=== PATIENT | male | born 1960 | race Caucasian/White ===

== ENCOUNTER → 2019-09-27 16:44 | Outpatient (CLI) | payer OTHER, SELFPAY ==
[2019-09-27 17:04] LABS: Basophils # 0.1 K/mm3 (0-0.2); Basophils % 0.5 % (0.1-2.0); Eosinophils # 0.2 K/mm3 (0.0-0.4); Eosinophils % 1.5 % (0.1-12.0); Hematocrit 47.8 % (42.0-52.0); Hemoglobin 15.5 g/dL (14.1-18.0); Lymphocytes % 16.8 % (10-50); Mean Corpuscular HGB Conc 32.5 g/dL (31.8-35.4); Mean Corpuscular Hemoglobin 30.2 pg (27.0-31.2); Mean Corpuscular Volume 92.9 fl (80-94); Mean Platelet Volume 9.4 fl (7.4-10.4); Monocytes # 0.6 K/mm3 (0.1-1.0); Monocytes % 5.4 % (1.7-9.3); Neutrophils # 8.8 K/mm3 (1.8-7.8); Neutrophils % 75.8 % (37.0-80.0); Platelet Count 243 K/mm3 (142-424); Red Blood Count 5.15 M/mm3 (4.60-6.20); White Blood Count 11.6 K/mm3 (4.8-10.8)
[2019-09-27 19:28] LABS: Alanine Aminotransferase 27 U/L (12-78); Albumin/Globulin Ratio 1.2 (1.1-1.8); Alkaline Phosphatase 106 U/L (46-116); Anion Gap 16.4 mEq/L (5-15); Aspartate Amino Transferase 16 U/L (15-37); Bilirubin,Total 0.4 mg/dL (0.2-1.0); Blood Urea Nitrogen 18 mg/dL (7-18); Calcium 9.2 mg/dL (8.5-10.1); Carbon Dioxide 25 mmol/L (21.0-32.0); Chloride 102 mmol/L (98-107); Cholesterol 187 mg/dL (140-200); Creatinine,Serum 0.93 mg/dL (0.70-1.30); Estimated Glomerular Filt Rate 83 ml/min (>60); GFR (African American) 101 ML/MIN (>60); Globulin 3.4 gm/dl (1.3-3.2); Glucose 233 mg/dL (74-106); HDL Cholesterol 47 mg/dL (27-67); LDL Cholesterol 97 mg/dL (0-130); Potassium 4.4 mmoL/L (3.5-5.1); Prostate Specific Ag Screen 3.2 ng/mL (0.0-4.0); Sodium 139 mmol/L (136-145); T4 (Thyroxine) 8.3 ug/dl (4.7-13.3); Thyroid Stimulating Hormone 1.28 uIU/ml (0.358-3.740); Total Protein,Serum 7.4 gm/dL (6.4-8.2); Triglycerides 214 mg/dL (30-200); VLDL Cholesterol 43 mg/dL (0-40)
[2019-09-27 20:21] LABS: Hemoglobin A1C 10.1 % (0.0-7.0)
[2019-09-29 12:10] LABS: Creatinine, Urine 99.3 mg/dL (Not Estab.); Microalbumin, Urine 25.4 ug/mL (Not Estab.)
[2019-09-29 15:31] LABS: Vitamin D 25 Hydroxy 19.8 ng/mL (30.0-100.0)
== END ==
PROVIDERS: Visit Provider Emergency Medicine
DX: E11.9 Type 2 diabetes mellitus without complications (principal); E78.5 Hyperlipidemia, unspecified; I10 Essential (primary) hypertension; E55.9 Vitamin D deficiency, unspecified; Z79.84 Long term (current) use of oral hypoglycemic drugs; Z12.5 Encounter for screening for malignant neoplasm of prostate
CPT/HCPCS: 80053; 80061; 82043; 82570; 82652; 83036; 84436; 84443; 85025; G0103

== ENCOUNTER → 2019-11-08 14:41 | Outpatient (CLI) | payer OTHER, SELFPAY ==
[2019-11-08 16:43] VITALS: BMI 42.3
== END ==
PROVIDERS: PCP Emergency Medicine; Visit Provider Emergency Medicine
DX: Z71.3 Dietary counseling and surveillance (principal)
CPT/HCPCS: 97802

== ENCOUNTER → 2020-01-05 16:41 | Outpatient (CLI) | payer OTHER, SELFPAY ==
[2020-01-05 17:22] LABS: Basophils # 0.1 K/mm3 (0-0.2); Basophils % 0.6 % (0.1-2.0); Eosinophils # 0.3 K/mm3 (0.0-0.4); Eosinophils % 3.7 % (0.1-12.0); Hematocrit 45.4 % (42.0-52.0); Hemoglobin 15.4 g/dL (14.1-18.0); Lymphocytes # 1.9 K/mm3 (0.7-4.5); Lymphocytes % 23.6 % (10-50); Mean Corpuscular HGB Conc 33.8 g/dL (31.8-35.4); Mean Corpuscular Hemoglobin 30.9 pg (27.0-31.2); Mean Corpuscular Volume 91.2 fl (80-94); Mean Platelet Volume 9.5 fl (7.4-10.4); Monocytes # 0.4 K/mm3 (0.1-1.0); Monocytes % 5.3 % (1.7-9.3); Neutrophils # 5.4 K/mm3 (1.8-7.8); Neutrophils % 66.8 % (37.0-80.0); Platelet Count 240 K/mm3 (142-424); Red Blood Count 4.98 M/mm3 (4.60-6.20); Red Cell Distribution Width 14.2 % (11.5-17.5); White Blood Count 8.1 K/mm3 (4.8-10.8)
[2020-01-05 17:35] LABS: Alanine Aminotransferase 21 U/L (12-78); Albumin Level 4.2 g/dl (3.5-5.0); Albumin/Globulin Ratio 1.5 (1.1-1.8); Alkaline Phosphatase 84 U/L (38-126); Anion Gap 12.3 mEq/L (5-15); Aspartate Amino Transferase 24 U/L (17-59); Bilirubin,Total 0.3 mg/dl (0.2-1.3); Blood Urea Nitrogen 13 mg/dl (9-20); Calcium 9.7 mg/dl (8.4-10.2); Carbon Dioxide 27 mmol/L (22.0-30.0); Chloride 101 mmol/L (98-107); Cholesterol 169 mg/dl (140-200); Estimated Glomerular Filt Rate 115 ml/min (>60); GFR (African American) 140 ML/MIN (>60); Globulin 2.8 g/dL (1.3-3.2); Glucose 224 mg/dl (74-100); HDL Cholesterol 42 mg/dl (40-60); Potassium 4.3 mmoL/L (3.5-5.1); Sodium 136 mmol/L (136-145); Triglycerides 287 mg/dl (30-150); VLDL Cholesterol 57 mg/dL (0-40)
[2020-01-05 17:46] LABS: Direct LDL Cholesterol 104.16 mg/dL (100-129)
[2020-01-05 22:14] LABS: Hemoglobin A1C 7.1 % (4.0-6.0)
[2020-01-07 11:25] LABS: Vitamin D 25 Hydroxy 39.2 ng/mL (30.0-100.0)
== END ==
PROVIDERS: Visit Provider Emergency Medicine
DX: E11.9 Type 2 diabetes mellitus without complications (principal); Z79.84 Long term (current) use of oral hypoglycemic drugs
CPT/HCPCS: 36415; 80053; 80061; 82652; 83036; 85025

== ENCOUNTER → 2020-04-28 10:41 | Outpatient (CLI) | payer OTHER, SELFPAY | PROVIDERS: PCP Emergency Medicine; Visit Provider Internal Medicine Cardiovascular Disease | DX: R07.9 Chest pain, unspecified (principal); R06.00 Dyspnea, unspecified; E11.9 Type 2 diabetes mellitus without complications; E66.9 Obesity, unspecified; E78.5 Hyperlipidemia, unspecified; I10 Essential (primary) hypertension | CPT/HCPCS: 93270 ==

== ENCOUNTER → 2020-05-10 15:06 | Outpatient (CLI) | payer OTHER, SELFPAY | PROVIDERS: PCP Emergency Medicine; Visit Provider Internal Medicine Cardiovascular Disease | DX: G47.33 Obstructive sleep apnea (adult) (pediatric) (principal); R07.9 Chest pain, unspecified; R06.00 Dyspnea, unspecified; I10 Essential (primary) hypertension; E78.5 Hyperlipidemia, unspecified; E11.9 Type 2 diabetes mellitus without complications; E66.9 Obesity, unspecified | CPT/HCPCS: G0399 ==

== ENCOUNTER → 2020-06-27 09:37 | Outpatient (CLI) | payer SELFPAY ==
--- NOTE | 2020-06-27 09:38 | CT_ITS ---
PROCEDURE: CT HEART W CALCIUM SCORE CLINICAL HISTORY: eval for cad COMPARISON: No exams were available for comparison TECHNIQUE: Axial images obtained with sagittal and coronal reformats. All CT scans at the facility use one or more dose reduction, viz: automated exposure control, ma/kV adjustment per patient size (including targeted exams where dose is matched to indication, i.e. head), or iterative reconstruction technique. FINDINGS: Coronary artery calcium score is 20 indicating mild calcific plaque burden with moderate cardiovascular disease risk. Incidental note is made of a gastric lap band. There are few small mediastinal lymph nodes. There are multiple noncalcified pulmonary nodules noted in both lower lobes. Consider dedicated chest CT for further evaluation. The largest image nodule is in the right middle lobe and measures approximately 12 mm. Differential diagnosis would include neoplastic or inflammatory/infectious process. If patient has an outside chest CT would be recommended to submit that for comparison. There are no previous exams available at this institution. There is mild thickening of the distal esophagus. IMPRESSION: 1. Mild calcific plaque burden with moderate cardiovascular disease risk. 2. Multiple noncalcified pulmonary nodules. Suggest dedicated chest CT without and with contrast for further evaluation Dictated by: Houston Johnston MD 06/27/2020 16:25 Houston Johnston MD in [place] 06/27/2020 16:25
== END ==
PROVIDERS: PCP Emergency Medicine; Visit Provider Internal Medicine Cardiovascular Disease
DX: R07.9 Chest pain, unspecified (principal); E66.9 Obesity, unspecified; E78.5 Hyperlipidemia, unspecified; I10 Essential (primary) hypertension
CPT/HCPCS: 75571

== ENCOUNTER 2021-03-25 09:32 | Emergency (ER) | payer OTHER, SELFPAY ==
[2021-03-25 09:36] VITALS: BP 189/92; PULSE 66; RESP 14; TEMP 36.8; O2SAT 99; BMI 40.6
[2021-03-25 09:44] VITALS: BP 179/94; PULSE 70; RESP 14; TEMP 36.8
--- NOTE | 2021-03-25 09:54 | HMH.EDUTC ---
[facility] [place]ression: Dental abscess Sinusitis Qualifiers: Sinusitis location: unspecified location Chronicity: acute Recurrence: non-recurrent Qualified Code(s): J01.90 - Acute sinusitis, unspecified Disposition: Home, Self-Care Condition on Discharge: Good Instructions: DI for Sinusitis Additional Instructions: Drink plenty of fluids. Take tylenol or ibuprofen for pain or fever. Take the medications as directed. Follow up with your regular doctor. GO TO THE ER FOR ANY WORSENING SYMPTOMS Don't start the oral steroids until tomorrow, since you had the shot here today. Prescriptions: methylPREDNISolone [Medrol] 4 mg PO DIRECTED 6 Days #21 tab.ds.pk Transmission Status: Received by [facility] #[id number] Benzonatate [Tessalon Perle 100mg Cap] 100 mg PO TIDP PRN #30 cap PRN Reason: Cough Transmission Status: Received by [facility] #[id number] Azithromycin [Z-Jhon 250mg Tab*] 250 mg PO UD DOSE PK #6 tab Transmission Status: Received by [facility] #[id number] Referrals: Mike Prasad MD [Primary Care Provider] - Time of Disposition: 10:10 Medical Decision Making - Medical Records Medical records reviewed: No: I reviewed the patient's medical records. - Vincent Inquiry Pt receiving controlled substance: No Vital Signs: 03/25/21 09:36 03/25/21 09:44 Temperature 98.3 F 98.3 F Temperature Source Oral Pulse Rate 70 Pulse Rate [Left] 66 Respiratory Rate 14 14 Blood Pressure 179/94 H Blood Pressure [Right Arm] 189/92 H Blood Pressure Mean [Right Arm] 124 Blood Pressure Source [Right Arm] Automatic Cuff Blood Pressure Position [Right Arm] Sitting 02 Sat by Pulse Oximetry 99 Oxygen Delivery Method Room Air Orders (Tests/Meds): ED MEDICATIONS Discontinued Medications Generic Name Dose Route Start Last Admin Trade Name Freq PRN Reason Stop Dose Admin Ceftriaxone Sodium 1 gm 03/25/21 09:58 03/25/21 10:02 Ceftriaxone 1gm Vial IM 03/25/21 09:59 1 gm ONCE ONE Administration Protocol Lidocaine HCl 0 ml 03/25/21 09:58 03/25/21 10:02 Lidocaine 1% 5ml Pf Vial IM 03/25/21 09:59 2 ml ONCE ONE Administration Methylprednisolone Sodium Succinate 125 mg 03/25/21 09:58 03/25/21 10:02 Methylprednisolone Sod Succ 125mg Vial IM 03/25/21 09:59 125 mg ONCE ONE Administration [facility] [place] - General Stated complaint: Sinus issues Time Seen by Provider: 03/25/21 09:55 Mode of Arrival: Ambulatory Source of Information: Patient Limitations: No Limitations Description of Symptoms (Recalled from Triage Doc. by RN): pt c/o sinus pressure, green mucous and nasal congestion. HEENT Symptoms (Recalled from RN notes): Yes (sinus pressure and congestion) Resp Symptoms (Recalled from RN notes): No Skin Symptoms (Recalled from RN notes): No MS Symptoms (Recalled from RN notes): No Functional Status (Recalled from RN notes): na - History of Present Illness Provider Complaint: He has been having right sided sinus pressure and tenderness for the past 2 days. He recently had a tooth pulled from is right upper jaw. - Related Data Home Medications Medication Instructions Recorded Confirmed aspirin 81 mg tablet,delayed 81 mg PO DAILY 01/07/20 02/20/21 release loratadine 10 mg tablet 10 mg PO DAILY 04/28/20 02/20/21 Previous Rx's Medication Instructions Recorded ergocalciferol (vitamin D2) 1,250 50,000 unit PO QWEEK 90 Days #12 06/09/20 mcg (50,000 unit) capsule cap lovastatin 20 mg tablet 20 mg PO DAILY #90 tab 06/09/20 bisoprolol fumarate 5 mg tablet 5 mg PO DAILY #90 tab 06/22/20 glipizide 10 mg tablet, extended 10 mg PO DAILY #90 tab 07/08/20 release 24 hr alogliptin 25 mg tablet 25 mg PO DAILY #90 tab 07/16/20 cholecalciferol (vitamin D3) 25 See Rx Instructions .ROUTE 11/21/20 mcg (1,000 unit) capsule .COMPLEX #90 cap metformin 500 mg tablet,extended See Rx Instructions .ROUTE 01/18/21 release 24 hr .
== END 2021-03-25 10:12 | disposition home or self-care (01) ==
PROVIDERS: Emergency Provider Nurse Practitioner Family; PCP Family Medicine
DX: K04.7 Periapical abscess without sinus (principal); J01.90 Acute sinusitis, unspecified; I10 Essential (primary) hypertension; E78.5 Hyperlipidemia, unspecified; E11.9 Type 2 diabetes mellitus without complications; Z79.899 Other long term (current) drug therapy
CPT/HCPCS: 96372; 99202; G0463

== ENCOUNTER 2021-04-07 15:11 | Emergency (ER) | payer OTHER, SELFPAY ==
--- NOTE | 2021-04-07 15:34 | HMH.EDUTC ---
[facility] [place] Clinical Impression: Sinusitis Qualifiers: Sinusitis location: maxillary Chronicity: acute Recurrence: non-recurrent Qualified Code(s): J01.00 - Acute maxillary sinusitis, unspecified Disposition: Home, Self-Care Condition on Discharge: Good Instructions: DI for Sinusitis Prescriptions: Amoxicillin/Potassium Clav [Augmentin 965-125 Tablet] 1 tab PO Q12H 10 Days #20 tab Transmission Status: Pending to [facility] # predniSONE [Prednisone 20mg Tab] 20 mg PO BID 5 Days #10 tab Transmission Status: Pending to [facility] # Cetirizine HCl [Zyrtec 10mg Tab*] 10 mg PO DAILY 30 Days #30 tab Transmission Status: Pending to [facility] # Referrals: Mike Prasad MD [Primary Care Provider] - Time of Disposition: 15:44 Medical Decision Making - Vincent Inquiry Pt receiving controlled substance: No [facility] [place] - General Stated complaint: drainage, mucus, heachache Time Seen by Provider: 04/07/21 15:34 - History of Present Illness Provider Complaint: Patient has been feeling poorly for about a month. Had a fractured tooth and took antibiotics for that. Then seen here and got Zpack and steroids. Still has right sinus pressure and tenderness, green bloody mucous. Using Flonase, Advil cold and sinus. Onset (ago): month(s) (1) Relieving factors: none Exacerbating factors: none Associated symptoms: denies other symptoms Treatments prior to arrival: none - Related Data Home Medications Medication Instructions Recorded Confirmed aspirin 81 mg tablet,delayed 81 mg PO DAILY 01/07/20 02/20/21 release loratadine 10 mg tablet 10 mg PO DAILY 04/28/20 02/20/21 Previous Rx's Medication Instructions Recorded ergocalciferol (vitamin D2) 1,250 50,000 unit PO QWEEK 90 Days #12 06/09/20 mcg (50,000 unit) capsule cap lovastatin 20 mg tablet 20 mg PO DAILY #90 tab 06/09/20 bisoprolol fumarate 5 mg tablet 5 mg PO DAILY #90 tab 06/22/20 glipizide 10 mg tablet, extended 10 mg PO DAILY #90 tab 07/08/20 release 24 hr alogliptin 25 mg tablet 25 mg PO DAILY #90 tab 07/16/20 cholecalciferol (vitamin D3) 25 See Rx Instructions .ROUTE 11/21/20 mcg (1,000 unit) capsule .COMPLEX #90 cap metformin 500 mg tablet,extended See Rx Instructions .ROUTE 01/18/21 release 24 hr .COMPLEX #360 tab azithromycin 500 mg tablet 500 mg PO DAILY 3 Days #3 tab 02/20/21 lisinopril 20 mg tablet 20 mg PO DAILY #90 tab 02/20/21 methylprednisolone 4 mg tablets in See Rx Instructions PO PER PKG DIR 02/20/21 a dose pack #21 tab Azithromycin [Z-Jhon 250mg Tab*] 250 mg PO UD DOSE PK #6 tab 03/25/21 Benzonatate [Tessalon Perle 100mg 100 mg PO TIDP PRN #30 cap 03/25/21 Cap] methylPREDNISolone [Medrol] 4 mg PO DIRECTED 6 Days #21 03/25/21 tab.ds.pk Amoxicillin/Potassium Clav 1 tab PO Q12H 10 Days #20 tab 04/07/21 [Augmentin 875-125 Tablet] Cetirizine HCl [Zyrtec 10mg Tab*] 10 mg PO DAILY 30 Days #30 tab 04/07/21 predniSONE [Prednisone 20mg 20 mg PO BID 5 Days #10 tab 04/07/21 Tab] Allergies Allergy/AdvReac Type Severity Reaction Status Date / Time diclofenac Allergy Mild Rash Verified 03/25/21 09:34 [facility] History - Hepatitis A Screen Attestation statement:: This patient has been screened for Hepatitis A risk factors. I have reviewed the patient's past medical history: Yes Medical History: Reports:: Cancer, Diabetes Mellitus Type 2, Hyperlipidemia, Hypertension Laterality Cases: Left: Arthroscopy Knee, Bilateral: Arthroscopy Shoulder Other Surgeries: Yes: Bariatric Surgery, Colonoscopy, Other Amputation: No Fractures: No Comment: rotator cuff -bilateral - Social History Smoking Status: Unknown if ever smoked Alcohol Intake: never Alcohol Intake Frequency:: a few times a week Substance Use Type: marijuana Occupational Status: employed Housing: house Household Members: none Family Hx:: Cancer, Stroke ROS Obtained: Yes All systems reviewed & no additional complain
[2021-04-07 16:01] VITALS: BP 169/61; PULSE 64; RESP 18; TEMP 37.1; O2SAT 98
== END 2021-04-07 16:02 | disposition home or self-care (01) ==
PROVIDERS: Emergency Provider Physician Assistant; PCP Family Medicine
DX: J01.00 Acute maxillary sinusitis, unspecified (principal); E11.9 Type 2 diabetes mellitus without complications; I10 Essential (primary) hypertension; E78.5 Hyperlipidemia, unspecified; Z79.899 Other long term (current) drug therapy

== ENCOUNTER → 2021-05-28 08:13 | Outpatient (CLI) | payer OTHER, SELFPAY ==
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
== END ==
PROVIDERS: PCP Family Medicine; Visit Provider Family Medicine
DX: M79.605 Pain in left leg (principal); M79.604 Pain in right leg; M79.89 Other specified soft tissue disorders
CPT/HCPCS: 93970

== ENCOUNTER 2021-12-04 09:43 | Emergency (ER) | payer OTHER, SELFPAY ==
[2021-12-04 10:00] VITALS: BP 141/91; PULSE 76; RESP 18; TEMP 36.8; O2SAT 98; BMI 42.4
--- NOTE | 2021-12-04 10:33 | HMH.EDUTC ---
[facility] [place] Clinical Impression: Sinusitis Qualifiers: Sinusitis location: unspecified location Chronicity: unspecified Qualified Code(s): J32.9 - Chronic sinusitis, unspecified Disposition: Home, Self-Care Condition on Discharge: Good Instructions: Sinusitis, DI for Sinusitis Additional Instructions: *Monitor Temp, Over the counter Motrin or Tylenol as directed/as needed Tylenol every 4 hours and Motrin every 6 hours (as long as your family doctor has told you that you can take it) for fever or pain. and straight to ER if unable to lower temp less than 101.0 after medication given *Warm salt water gargles may help to soothe the throat *Throat Lozenges *Warm fluids like tea with honey may help to soothe the throat *Sleep elevated *Humidifier/Vaporizer *Flonase 2 sprays in each nostril daily but be aware that it may take 2-3 days before you notice improvement Take medication as prescribed Return if needed Follow up IMMEDIATELY for new or worsening symptoms or no Noticeable improvement over the next 48-72 hours. 911 for difficulty breathing or swallowing Prescriptions: Benzonatate [Benzonatate 100mg cap] 100 mg PO Q8HP PRN #15 cap PRN Reason: Cough Transmission Status: Pending to [facility] # Amoxicillin/Potassium Clav [Augmentin 875-125 Tablet] 1 tab PO Q12H 10 Days #20 tab Transmission Status: Pending to [facility] # predniSONE [Deltasone 10mg tablet] 10 mg PO BID 5 Days #10 tab Transmission Status: Pending to [facility] # Referrals: Mike Prasad MD [Primary Care Provider] - As needed Time of Disposition: 10:42 Medical Decision Making - Vincent Inquiry Pt receiving controlled substance: No Vincent was queried for this patient: No Vital Signs: 12/04/21 10:00 Temperature 98.2 F Temperature Source Oral Pulse Rate [Right Brachial] 76 Respiratory Rate 18 Blood Pressure [Right Arm] 141/91 H Blood Pressure Mean [Right Arm] 107 Blood Pressure Source [Right Arm] Automatic Cuff Blood Pressure Position [Right Arm] Sitting 02 Sat by Pulse Oximetry 98 Oxygen Delivery Method Room Air Medical Decision Narrative: Patient states he has taken augmentin and prednisone in the past without complications or reactions [facility] [place] HPI - General Stated complaint: scratchy throat, cough, congestion Time Seen by Provider: 12/04/21 10:33 Mode of Arrival: Ambulatory Source of Information: Patient Limitations: No Limitations Description of Symptoms (Recalled from Triage Doc. by RN): PATIENT C/O POSSIBLE SINUS INFECTION INTERMITTENLY X 2 MONTHS HEENT Symptoms (Recalled from RN notes): Yes Resp Symptoms (Recalled from RN notes): No Skin Symptoms (Recalled from RN notes): No MS Symptoms (Recalled from RN notes): No Functional Status (Recalled from RN notes): WNL - History of Present Illness Provider Complaint: Patient state that he gets sinus infections several times a year and feels like he may have one States that he has been having sinus pain and pressure along with scratchy throat and drianage in the back of his thorat that makes him cough States that today he was still having pressure so he came in to get checked - Related Data Home Medications Medication Instructions Recorded Confirmed aspirin 81 mg tablet,delayed 81 mg PO DAILY 01/07/20 06/19/21 release loratadine 10 mg tablet 10 mg PO DAILY 04/28/20 06/19/21 Metformin HCl [Metformin HCl ER] 500 mg PO BID 12/04/21 12/04/21 Previous Rx's Medication Instructions Recorded lovastatin 20 mg tablet 20 mg PO DAILY #90 tab 06/09/20 azithromycin 500 mg tablet 500 mg PO DAILY 3 Days #3 tab 06/19/21 oxycodone-acetaminophen 5 mg-325 1 tab PO BID PRN #30 tab 06/19/21 mg tablet glipizide 10 mg tablet, extended 10 mg PO DAILY #90 tab 07/06/21 release 24 hr bisoprolol fumarate 5 mg tablet See Rx Instructions .ROUTE 09/20/21 .COMPLEX #90 tab amlodipine 10 mg-benazepril 20 mg See Rx Instructions .ROUTE 11/26/21
[2021-12-04 10:46] VITALS: BP 141/91; PULSE 76; RESP 18; TEMP 36.8; O2SAT 98
== END 2021-12-04 10:55 | disposition home or self-care (01) ==
PROVIDERS: Emergency Provider Nurse Practitioner; PCP Family Medicine
DX: J32.9 Chronic sinusitis, unspecified (principal); E78.5 Hyperlipidemia, unspecified; I10 Essential (primary) hypertension; E11.9 Type 2 diabetes mellitus without complications
CPT/HCPCS: 99202; G0463

== ENCOUNTER → 2021-12-10 16:00 | Outpatient (CLI) | payer OTHER, SELFPAY ==
[2021-12-10 18:33] LABS: Hemoglobin A1C 9.5 % (4.0-6.0)
== END ==
PROVIDERS: Visit Provider Family Medicine
DX: E11.9 Type 2 diabetes mellitus without complications (principal); N39.41 Urge incontinence; Z79.84 Long term (current) use of oral hypoglycemic drugs; B37.41 Candidal cystitis and urethritis
CPT/HCPCS: 83036; 87086

== ENCOUNTER → 2021-12-27 13:25 | Outpatient (CLI) | payer OTHER, SELFPAY ==
[2021-12-27 17:38] LABS: Chloride 100 mmol/L (98-107); Potassium 4.5 mmoL/L (3.5-5.1); Sodium 131 mmol/L (136-145)
[2021-12-27 17:40] LABS: Alanine Aminotransferase 28 U/L (12-78); Aspartate Amino Transferase 29 U/L (17-59); Blood Urea Nitrogen 12 mg/dl (9-20); Estimated Glomerular Filt Rate 115 ml/min (>60); GFR (African American) 139 ML/MIN (>60)
[2021-12-27 17:41] LABS: Albumin Level 4.2 g/dl (3.5-5.0); Albumin/Globulin Ratio 1.4 (1.1-1.8); Alkaline Phosphatase 103 U/L (38-126); Anion Gap 11.5 mEq/L (5-15); Bilirubin,Total 0.7 mg/dl (0.2-1.3); Calcium 8.3 mg/dl (8.4-10.2); Carbon Dioxide 24 mmol/L (22.0-30.0); Globulin 2.9 g/dL (1.3-3.2); Glucose 200 mg/dl (74-100); Total Protein,Serum 7.1 g/dl (6.3-8.2)
== END ==
PROVIDERS: Visit Provider Family Medicine
DX: R94.4 Abnormal results of kidney function studies (principal)
CPT/HCPCS: 80053

== ENCOUNTER → 2022-02-08 08:23 | Outpatient (CLI) | payer OTHER, SELFPAY ==
--- NOTE | 2022-02-08 08:30 | XR_ITS ---
FINAL REPORT CLINICAL HISTORY: left shoulder pain FINDINGS: LEFT SHOULDER Three views demonstrate no acute fracture or dislocation. There are mild degenerative changes at the acromioclavicular and glenohumeral joint. There are postoperative changes in the humeral head. There is a calcification in or adjacent to the humeral neck. The visualized bony structures are well aligned. No soft tissue abnormality is seen. IMPRESSION: Mild degenerative change at the acromioclavicular and glenohumeral joint. Reviewed, Interpreted and Dictated by Dylan Celis III, MD Transcribed by Barb Ortega Authenticated by Dylan Celis III, MD on 02/08/2022 10:06:09 AM [facility]
== END ==
PROVIDERS: PCP Family Medicine; Visit Provider Orthopaedic Surgery
DX: M25.512 Pain in left shoulder (principal)
CPT/HCPCS: 73030

== ENCOUNTER → 2022-02-18 10:33 | Outpatient (CLI) | payer OTHER, SELFPAY ==
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
== END ==
PROVIDERS: PCP Family Medicine; Visit Provider Orthopaedic Surgery
DX: M75.102 Unspecified rotator cuff tear or rupture of left shoulder, not specified as traumatic (principal)
CPT/HCPCS: 73221

== ENCOUNTER → 2022-03-29 10:00 | Outpatient (CLI) | payer OTHER, SELFPAY ==
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
== END ==
PROVIDERS: PCP Family Medicine; Visit Provider Orthopaedic Surgery
DX: M25.572 Pain in left ankle and joints of left foot (principal)
CPT/HCPCS: 73610

== ENCOUNTER 2022-03-29 12:08 | Outpatient (RCR) | payer OTHER, SELFPAY | END 2022-03-29 13:00 | disposition home or self-care (01) | LOC: PT 12:08 | PROVIDERS: Visit Provider Orthopaedic Surgery | DX: M25.572 Pain in left ankle and joints of left foot (principal) | CPT/HCPCS: 97760 ==

== ENCOUNTER 2022-08-10 11:59 | Emergency (ER) | payer OTHER, SELFPAY ==
--- NOTE | 2022-08-10 12:54 | EXP.UTC ---
Discharge Plan Disposition Patient Disposition: Home, Self-Care Condition: Good Prescriptions Prescriptions: New azithromycin [Zithromax] 250 mg tablet 250 mg PO UD DOSE PK Qty: 6 0RF Rx Instructions: Take two (2) tablets today, then one (1) tablet days #2 thru #5 benzonatate [benzonatate] 100 mg capsule 100 mg PO TIDP PRN (Reason: Cough) Qty: 30 0RF methylprednisolone 4 mg Tablets,Dose Pack 4 mg PO DIRECTED Qty: 21 0RF No Action glipizide 10 mg tablet extended release 24hr 10 mg PO DAILY Qty: 90 3RF bisoprolol fumarate 5 mg tablet See Rx Instructions .ROUTE .COMPLEX Qty: 90 0RF Dose Instruction: TAKE 1 TABLET BY MOUTH DAILY Rx Instructions: TAKE 1 TABLET BY MOUTH DAILY amlodipine-benazepril 10-20 mg capsule See Rx Instructions .ROUTE .COMPLEX Qty: 30 3RF Dose Instruction: TAKE 1 CAPSULE BY MOUTH DAILY Rx Instructions: TAKE 1 CAPSULE BY MOUTH DAILY metformin 500 mg tablet extended release 24 hr See Rx Instructions .ROUTE .COMPLEX Qty: 120 0RF Dose Instruction: TAKE 2 TABLETS BY MOUTH TWICE DAILY Rx Instructions: TAKE 2 TABLETS BY MOUTH TWICE DAILY Referrals Follow up/Referrals: Mike Prasad MD [Primary Care Provider] - See instructions Activity Restrictions/Add. Instructions Additional Instructions/Restrictions: Drink plenty of fluids. Take tylenol or ibuprofen for pain or fever. Take the medications as directed. Follow up with your regular doctor. GO TO THE ER FOR ANY WORSENING SYMPTOMS Clinical Impressions Clinical Impression: Sinusitis Instructions Patient Instructions: Sinusitis, DI for Sinusitis Discharge ED Provider: Abhijeet Amaya [facility] General Stated complaint: head congestion Time Seen by Provider: 08/10/22 12:54 History of Present Illness Provider Complaint: He states that for the past 5 days he has had worsening sinus congestion and sinus pressure. Related Data Previous Rx's Medication Instructions Recorded glipizide 10 mg tablet, extended 10 mg PO DAILY #90 tabs 07/06/21 release 24 hr bisoprolol fumarate 5 mg tablet See Rx Instructions .Route 05/17/22 .COMPLEX #90 tabs amlodipine 10 mg-benazepril 20 mg See Rx Instructions .Route 06/25/22 capsule .COMPLEX #30 caps metformin 500 mg tablet,extended See Rx Instructions .Route 07/18/22 release 24 hr .COMPLEX #120 tabs azithromycin 250 mg tablet 250 mg PO UD DOSE PK #6 tabs 08/10/22 (Zithromax) benzonatate 100 mg capsule 100 mg PO TIDP PRN Cough #30 caps 08/10/22 methylprednisolone 4 mg tablets in 4 mg PO DIRECTED #21 tabs 08/10/22 a dose pack Allergies Allergy/AdvReac Type Severity Reaction Status Date / Time diclofenac Allergy Mild Rash Verified 08/10/22 13:05 [facility] Medical History Diabetes mellitus Hypertension Social History Smoking Status: Never smoker alcohol intake: never substance use type: marijuana current occupational status: other Travel in the last 8 weeks: None household members: none housing: house ROS Obtained: Yes All systems reviewed & no additional complaints except as documented Constitutional Constitutional: Reports chills and Reports fever(s) Eyes Eyes: Denies eye discharge ENT Ears, Nose, Mouth, and Throat: Reports as per HPI Cardiovascular Cardiovascular: Denies chest pain Respiratory Respiratory: Denies chest congestion and Reports cough Gastrointestinal Gastrointestingal: Reports nausea; Denies abdominal pain, constipation, cramping, diarrhea or vomiting Musculoskeletal Musculoskeletal: Denies arthralgias Integumentary/Breasts Skin/Breast: Denies rash Neurologic Neurologic: Denies paresthesias Physical Exam General General appearance: alert and in no apparent distress Head Head exam: atraumatic, normocephalic and normal inspection Eye Eye exam:
[2022-08-10 13:02] VITALS: BP 158/87; PULSE 68; RESP 18; TEMP 37.2; O2SAT 95; BMI 42.0
[2022-08-10 13:37] VITALS: BP 158/87; PULSE 68; RESP 18; TEMP 37.2
== END 2022-08-10 13:38 | disposition home or self-care (01) ==
PROVIDERS: Emergency Provider Nurse Practitioner Family; PCP Family Medicine
DX: R09.81 Nasal congestion (principal); R50.9 Fever, unspecified; R11.0 Nausea; R05.9 Cough, unspecified; I10 Essential (primary) hypertension; E11.9 Type 2 diabetes mellitus without complications; Z79.52 Long term (current) use of systemic steroids; Z79.84 Long term (current) use of oral hypoglycemic drugs; Z79.899 Other long term (current) drug therapy; Z88.8 Allergy status to other drugs, medicaments and biological substances
CPT/HCPCS: 99212; G0463

== ENCOUNTER 2023-04-20 18:23 | Emergency (ER) | payer SELFPAY ==
[2023-04-20 18:24] VITALS: BP 179/84; PULSE 77; RESP 18; TEMP 36.6; O2SAT 97; BMI 43.5
--- NOTE | 2023-04-20 18:36 | PC.NURSE ---
DR ASHFORD AT BEDSIDE
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
--- NOTE | 2023-04-20 18:50 | PC.NURSE ---
PT AMBULATED TO AND FROM BR WITHOUT DIFFICULTY
[2023-04-20 19:13] VITALS: BP 167/74; PULSE 75; RESP 18; TEMP 36.6; O2SAT 97
== END 2023-04-20 19:15 | disposition home or self-care (01) ==
PROVIDERS: Emergency Provider Emergency Medicine; PCP Family Medicine
DX: M54.42 Lumbago with sciatica, left side (principal); E11.9 Type 2 diabetes mellitus without complications; I10 Essential (primary) hypertension
CPT/HCPCS: 96372; 99283; 99284

== ENCOUNTER → 2023-07-17 15:37 | Outpatient (CLI) | payer MEDICAID, SELFPAY ==
[2023-06-27 14:09] LABS: Basophils % 0.5 % (0.1-2.0); Eosinophils # 0.2 K/mm3 (0.0-0.4); Eosinophils % 2.5 % (0.1-12.0); Hematocrit 49.1 % (42.0-52.0); Lymphocytes % 27.9 % (10-50); Mean Corpuscular HGB Conc 30.6 g/dL (31.8-35.4); Mean Corpuscular Hemoglobin 28.4 pg (27.0-31.2); Mean Corpuscular Volume 92.7 fl (80-94); Mean Platelet Volume 8.4 fl (7.4-10.4); Monocytes # 0.4 K/mm3 (0.1-1.0); Monocytes % 5.1 % (1.7-9.3); Neutrophils # 4.7 K/mm3 (1.8-7.8); Platelet Count 233 K/mm3 (142-424); Red Blood Count 5.29 M/mm3 (4.60-6.20); Red Cell Distribution Width 14.5 % (11.5-17.5); White Blood Count 7.3 K/mm3 (4.8-10.8)
[2023-06-27 14:22] LABS: Alanine Aminotransferase 26 U/L (12-78); Albumin Level 4.1 g/dl (3.5-5.0); Albumin/Globulin Ratio 1.4 (1.1-1.8); Alkaline Phosphatase 122 U/L (38-126); Anion Gap 13.4 mEq/L (5-15); Aspartate Amino Transferase 24 U/L (17-59); Bilirubin,Total 0.4 mg/dl (0.2-1.3); Blood Urea Nitrogen 13 mg/dl (9-20); Calcium 8.9 mg/dl (8.4-10.2); Carbon Dioxide 23 mmol/L (22.0-30.0); Chloride 103 mmol/L (98-107); Chol/HDL Ratio 5.8 (1-3.5); Cholesterol 256 mg/dl (140-200); Estimated Glomerular Filt Rate 136 ml/min (>60); GFR (African American) 165 ML/MIN (>60); Globulin 2.9 g/dL (1.3-3.2); Glucose 320 mg/dl (74-100); HDL Cholesterol 44 mg/dl (40-60); Potassium 4.4 mmoL/L (3.5-5.1); Sodium 135 mmol/L (136-145); Triglycerides 223 mg/dl (30-150); VLDL Cholesterol 45 mg/dL (0-40)
[2023-06-27 14:33] LABS: Direct LDL Cholesterol 151.69 mg/dL (100-129)
[2023-06-27 14:39] LABS: 25-OH Vitamin D, Total 23.1 ng/mL (30-100)
[2023-06-27 14:52] LABS: Prostate Specific Ag Screen 4.4 ng/ml (0.0-4.0)
[2023-06-27 15:26] LABS: Thyroid Stimulating Hormone 2.44 uIU/mL (0.465-4.68)
== END ==
PROVIDERS: PCP Nurse Practitioner Family; Visit Provider Nurse Practitioner Family
DX: R53.83 Other fatigue (principal); E11.9 Type 2 diabetes mellitus without complications; E78.5 Hyperlipidemia, unspecified; I10 Essential (primary) hypertension; E55.9 Vitamin D deficiency, unspecified; E66.9 Obesity, unspecified; Z68.41 Body mass index [BMI] 40.0-44.9, adult; N40.1 Benign prostatic hyperplasia with lower urinary tract symptoms; Z12.5 Encounter for screening for malignant neoplasm of prostate
CPT/HCPCS: 80053; 80061; 82306; 84443; 85025; G0103

== ENCOUNTER → 2023-07-25 09:47 | Outpatient (CLI) | payer MEDICAID, SELFPAY | PROVIDERS: PCP Student in an Organized Health Care Education/Training Program; Visit Provider Student in an Organized Health Care Education/Training Program | DX: Z20.822 Contact with and (suspected) exposure to COVID-19 (principal); J02.9 Acute pharyngitis, unspecified; U07.1 COVID-19 | CPT/HCPCS: 87070; 87635 ==

== ENCOUNTER 2023-09-18 15:10 | Emergency (ER) | payer MEDICAID, SELFPAY ==
[2023-09-18 15:20] VITALS: BP 146/83; PULSE 82; RESP 20; TEMP 37.3; O2SAT 96; BMI 42.5
--- NOTE | 2023-09-18 15:33 | EXP.UTC ---
Discharge Plan Disposition Patient Disposition: Home, Self-Care Condition: Good Prescriptions Prescriptions: New methocarbamol 500 mg tablet 500 mg PO TID PRN (Reason: muscle spasm) Qty: 12 0RF No Action Ozempic 0.25 mg or 0.5 mg (2 mg/3 mL) pen injector 0.25 mg SQ WEEKLY Qty: 3 2RF Rx Instructions: for 4 weeks lisinopril 5 mg tablet 5 mg PO DAILY Qty: 30 2RF (DME) blood-glucose meter [Blood Glucose Monitoring] Kit See Rx Instructions .Route Qty: 1 0RF Rx Instructions: As directed (DME) lancets [Accu-Chek Softclix Lancets] Misc See Rx Instructions .Route Qty: 100 0RF Rx Instructions: Check sugar BID fluticasone propionate [Allergy Relief (fluticasone)] 50 mcg/actuation spray,suspension 1 spray intranasal DAILY Qty: 16 2RF Rx Instructions: administer into each nostril glipizide 10 mg tablet extended release 24hr 10 mg PO DAILY Qty: 90 3RF tamsulosin [Flomax] 0.4 mg capsule 0.4 mg PO HS Qty: 30 2RF atorvastatin 10 mg tablet 10 mg PO DAILY Qty: 30 2RF aspirin [Adult Aspirin Regimen] 81 mg tablet,delayed release (DR/EC) 81 mg PO DAILY Qty: 30 2RF amoxicillin-pot clavulanate 875-125 mg tablet 1 tab PO BID 10 Days Qty: 20 0RF benzonatate 100 mg capsule 100 mg PO BID PRN (Reason: cough) Qty: 20 0RF amlodipine-benazepril 10-20 mg capsule See Rx Instructions .ROUTE .COMPLEX Qty: 30 3RF Dose Instruction: TAKE 1 CAPSULE BY MOUTH DAILY Rx Instructions: TAKE 1 CAPSULE BY MOUTH DAILY hydrochlorothiazide 25 mg tablet 25 mg PO DAILY Qty: 30 2RF bisoprolol fumarate 5 mg tablet See Rx Instructions .ROUTE .COMPLEX Qty: 90 0RF Dose Instruction: TAKE 1 TABLET BY MOUTH DAILY Rx Instructions: TAKE 1 TABLET BY MOUTH DAILY metformin 500 mg tablet extended release 24 hr See Rx Instructions .ROUTE .COMPLEX Qty: 120 1RF Dose Instruction: TAKE 2 TABLETS BY MOUTH TWICE DAILY Rx Instructions: TAKE 2 TABLETS BY MOUTH TWICE DAILY ibuprofen 600 mg tablet 600 mg PO Q8H PRN (Reason: pain) Qty: 90 0RF cholecalciferol (vitamin D3) 50 mcg (2,000 unit) capsule 50 mcg PO DAILY Qty: 30 4RF cholecalciferol (vitamin D3) 1,250 mcg (50,000 unit) tablet 1,250 mcg PO WEEKLY Qty: 7 2RF Referrals Follow up/Referrals: Gee Rucker APRN [Primary Care Provider] - See instructions Activity Restrictions/Add. Instructions Additional Instructions/Restrictions: FOllow up with Gee Rucker tomorrow at 10am or 1pm if pain returns or worsens *Ibuprofen as you was prescribed with meal as needed for pain/inflammation *Not additional anti-inflammatory like motrin, aleve, advil with the above amount of ibuprofen. You can still take Tylenol every 4 hours as needed if you need something else for pain *Ice 20 minutes every 2 hours for the first 48 hours after the initial injury followed by moist heat every 20 minutes 3-4 times a day to affected area *Muscle relaxer every 8 hours as needed for muscle spasms but remember, it WILL cause drowsiness You cannot take it and drive, operate machinery or care for small children. *Keep this area active, no movement leads to more stiffness, However take it easy and avoid heavy lifting pushing or pulling *Follow up with you family doctor if no improvement for further treatment Clinical Impressions Clinical Impression: Left low back pain Qualifiers: Chronicity: unspecified Sciatica presence: without sciatica Qualified Code(s): M54.50 - Low back pain, unspecified Instructions Patient Instructions: Methocarbamol, DI for Flank Pain Discharge ED Provider: Sherri Tong [facility] General Stated complaint: lower back pain Mode of Arrival: Ambulatory Source of Information: Patient Limitations: No Limitations Time Seen by Provider: 09/18/23 15:33 Description of Symptoms (Recalled from Triage Doc. by RN): PATIENT C/O LEFT FLANK PAIN X 3 DAYS HEENT Sym
[2023-09-18 15:46] LABS: Apearance,Urine Clear (Clear); Bilirubin,Urine Negative (Negative); Blood, Urine Negative (Negative); Color,Urine Yellow (Yellow); Glucose,Urine (UA) 100 (Negative); Ketones,Urine Negative (Negative); Protein,Urine Negative (Negative); Specific Gravity, Urine >= 1.030 (1.005-1.030); UTC Leukocyte Esterase,Urine Negative (Negative); UTC Nitrate,Urine Negative (Negative); Urobilinogen,Urine 0.2 EU/dl (0.2)
[2023-09-18 16:12] VITALS: BP 146/83; PULSE 82; RESP 20; TEMP 37.3; O2SAT 96
== END 2023-09-18 16:24 | disposition home or self-care (01) ==
PROVIDERS: Emergency Provider Nurse Practitioner; PCP Nurse Practitioner Family
DX: M54.50 Low back pain, unspecified (principal); E11.9 Type 2 diabetes mellitus without complications; I10 Essential (primary) hypertension; Z79.84 Long term (current) use of oral hypoglycemic drugs
CPT/HCPCS: 81003; 99212; 99214; G0463

== ENCOUNTER 2024-02-06 18:00 | Outpatient (CLI) | payer MEDICAID, SELFPAY ==
[2024-02-06 18:18] LABS: Coronavirus 19, PCR Not Detected (NotDetected); Influenza A, PCR Not Detected (NotDetected); Influenza B, PCR Not Detected (NotDetected)
== END 2024-02-06 23:59 | disposition home or self-care (01) ==
LOC: LAB.DROPOF 02-08 10:54
PROVIDERS: PCP Student in an Organized Health Care Education/Training Program; Visit Provider Student in an Organized Health Care Education/Training Program
DX: J02.9 Acute pharyngitis, unspecified (principal); R06.89 Other abnormalities of breathing; R09.82 Postnasal drip
CPT/HCPCS: 87070; 87636

== ENCOUNTER 2024-04-20 12:32 | Outpatient (CLI) | payer MEDICAID, SELFPAY ==
[2024-04-20 13:59] VITALS: BMI 42.1
== END 2024-04-20 23:59 | disposition home or self-care (01) ==
LOC: DIETICIAN 12:33
PROVIDERS: PCP Nurse Practitioner Family; Visit Provider Student in an Organized Health Care Education/Training Program
DX: E11.9 Type 2 diabetes mellitus without complications (principal); E66.9 Obesity, unspecified; Z68.41 Body mass index [BMI] 40.0-44.9, adult
CPT/HCPCS: 97802

== ENCOUNTER 2024-05-07 14:20 | Outpatient (CLI) | payer MEDICAID, SELFPAY ==
--- NOTE | 2024-05-07 14:25 | XR_ITS ---
FINAL REPORT CLINICAL HISTORY: Foot Pain FINDINGS: AP, oblique and lateral views of the left foot were obtained. There is no prior exam for comparison. There is no acute fracture or dislocation. 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 Soft tissues are normal. IMPRESSION: No acute osseous abnormality of the left foot. Reviewed, Interpreted and Dictated by Marine Casey MD Transcribed by Barb Khan Authenticated and [facility]
--- NOTE | 2024-05-07 14:25 | XR_ITS ---
FINAL REPORT CLINICAL HISTORY: Foot Pain FINDINGS: AP, oblique and lateral views of the right foot were obtained. There is no prior exam for comparison. There is no acute fracture or dislocation. 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 Soft tissues are normal. IMPRESSION: No acute osseous abnormality of the right foot. Reviewed, Interpreted and Dictated by Marine Casey MD Transcribed by Barb Khan Authenticated and [facility]
== END 2024-05-07 23:59 | disposition home or self-care (01) ==
LOC: RAD 14:22
PROVIDERS: PCP Nurse Practitioner Family; Visit Provider Podiatrist
DX: M79.671 Pain in right foot (principal); M79.672 Pain in left foot
CPT/HCPCS: 73630

== ENCOUNTER 2024-09-28 15:00 | Outpatient (RCR) | payer MEDICAID, SELFPAY ==
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
--- NOTE | 2024-09-23 16:02 | HMH.RHREAS ---
Rehab Reassessment Rehab OP Re-assessment Start: 08/24/24 13:51 Freq: Status: Active Protocol: Document 09/23/24 12:10 GILBERT (Rec: 09/23/24 16:02 GILBERT [id number]) E-signed By Nazanin Bush, PT Lower Extremity Functional Index Activities Today, do you or would you have any difficulty at all with: a.Any of your usual work, housework or A little bit of difficulty school activities b. Your usual hobbies, recreational or Quite a bit of difficulty sporting activities c. Getting into or out of the bath A little bit of difficulty d. Walking between rooms No difficulty e. Putting on your shoes or socks Moderate difficulty f. Squatting A little bit of difficulty g. Lifting an object, like a bag of No difficulty groceries from the floor h. Performing light activities around A little bit of difficulty your home i. Performing heavy activities around Moderate difficulty your home j. Getting into or out of a car No difficulty k. Walking 2 blocks Quite a bit of difficulty l. Walking a mile Quite a bit of difficulty m. Going up or down 10 stairs (about 1 Moderate difficulty flight of stairs) n. Standing for 1 hour Quite a bit of difficulty o. Sitting for 1 hour A little bit of difficulty p. Running on even ground Quite a bit of difficulty q. Running on uneven ground Quite a bit of difficulty r. Making sharp turns while running fast Extreme difficulty or unable to perform activity s. Hopping Quite a bit of difficulty t. Rolling over in bed A little bit of difficulty LEFI Score Lower Extremity Functional Index Score 43 Rehab Re-assessment Subjective Subjective Pt reports since his initial PT session he feels 12% improved. HEP: Pt reports he has not been doing his exercises but reports he has been very active. Pt's 24-48 hour pain is 0/10. Objective Objective Notes Romberg: pass all sections LEFS: 43/80 Strength: LLE - Hip FLEX = 4/5 - Hip ABD = 4/5 - Hip ADD = 4/5 - Knee FLEX = 4/5 - Knee EXT = 4/5 SLS: 1-2 seconds Assessment Progress Assessment Progressing as Expected Assessment Notes This is a reassessment for Mitch Rivera who presents to PT for c/o weakness and LE pain. Since IE, pt has been seen for 8 visits that have consisted of education and therapeutic exercises focusing on LE strength and balance. Pt with good attendance to scheduled PT visits and reports minimal-no adherence to HEP. Since IE, pt with improvements in strength in LLE. Pt still presents with impaired strength and balance on uneven surfaces. Pt would continue to benefit from skilled outpatient physical therapy to address remaining deficits and achieve LTGs. Patient goals met ST) Improve L LE hip flexion to 4/5: MET 2) Hold tandem stance for 10 seconds to improve functional balance: MET 3) Improve by 2 points to improve LE functioning: not met 4) Verbalize IND with HEP: not met LT) Demo 5/5 MMT strength in LLE: not met 2) Tolerate one 10-minute Mod Intensity endurance intervention: MET 3) 20 minutes without increase in symptoms MET 4) Hold SLS for 10 seconds to improve functional balance: not met 5) Improve by 5 points since IE to improve LE functioning and QOL: not met 6) At worst pain 2/10: MET 7) Verbalize IND with advanced HEP: not met Plan Plan continue POC Frequency of Therapy 2 times weekly Duration of therapy 2-3 weeks Time and Billing Re-Eval Time 10 Re-Eval Billing Units 0 Charge for PT reassessment? No PHYSICIAN CERTIFICATION: I certify the specified therapy services for Mitch Rivera are required, authorized, and reviewed every 30 days.
== END 2024-09-28 23:59 | disposition home or self-care (01) ==
LOC: PT 15:00
PROVIDERS: Visit Provider Podiatrist
DX: R53.1 Weakness (principal)
CPT/HCPCS: 97110; 97163; 97530

== ENCOUNTER 2025-03-02 13:00 | Outpatient (CLI) | payer MEDICARE, SELFPAY ==
[2025-03-02 18:59] LABS: Basophils # 0.1 K/mm3 (0-0.2); Basophils % 0.6 % (0.1-2.0); Eosinophils # 0.1 Kmm3 (0.0-0.4); Eosinophils % 0.8 % (0.1-12.0); Hemoglobin 17.3 g/dL (14.1-18.0); Immature Granulocytes # 0.02 10^3uL; Immature Granulocytes % 0.2 %; Lymphocytes # 2.5 K/mm3 (0.7-4.5); Lymphocytes % 19.4 % (10-50); Mean Corpuscular HGB Conc 33.3 g/dL (31.8-35.4); Mean Corpuscular Hemoglobin 29.6 pg (27.0-31.2); Mean Corpuscular Volume 88.9 fl (80-94); Mean Platelet Volume 11.3 fl (7.4-10.4); Monocytes # 0.8 K/mm3 (0.1-1.0); Monocytes % 6.6 % (1.7-9.3); Neutrophils # 9.2 K/mm3 (1.8-7.8); Neutrophils % 72.4 % (37.0-80.0); Nucleated Red Blood Cells # 0 10^3/uL; Nucleated Red Blood Cells % 0 %; Platelet Count 259 K/mm3 (142-424); Red Blood Count 5.85 M/mm3 (4.60-6.20); Red Cell Distribution Width 13.9 % (11.5-17.5); Red Cell Distribution Width-SD 45.1 fL; White Blood Count 12.7 K/mm3 (4.8-10.8)
[2025-03-02 19:47] LABS: Albumin Level 4.5 g/dl (3.5-5.0); Chloride 108 mmol/L (98-107); Potassium 4.6 mmoL/L (3.5-5.1); Sodium 139 mmol/L (136-145)
[2025-03-02 19:49] LABS: Blood Urea Nitrogen 18 mg/dl (9-20); Estimated Glomerular Filt Rate 97 ml/min (>60); GFR (African American) 118 ML/MIN (>60)
[2025-03-02 19:50] LABS: Alanine Aminotransferase 24 U/L (12-78); Albumin/Globulin Ratio 1.7 (1.1-1.8); Alkaline Phosphatase 110 U/L (38-126); Anion Gap 14.6 mEq/L (5-15); Aspartate Amino Transferase 26 U/L (17-59); Bilirubin,Total 0.8 mg/dl (0.2-1.3); Calcium 9.7 mg/dl (8.4-10.2); Carbon Dioxide 21 mmol/L (22.0-30.0); Chol/HDL Ratio 5.2 (1-3.5); Cholesterol 215 mg/dl (140-200); Globulin 2.7 g/dL (1.3-3.2); Glucose 186 mg/dl (74-100); HDL Cholesterol 41 mg/dl (40-60); Total Protein,Serum 7.2 g/dl (6.3-8.2); Triglycerides 220 mg/dl (30-150); VLDL Cholesterol 44 mg/dL (0-40)
[2025-03-02 20:01] LABS: Direct LDL Cholesterol 130.57 mg/dL (100-129)
[2025-03-02 20:22] LABS: Thyroid Stimulating Hormone 1.82 uIU/mL (0.465-4.68)
[2025-03-02 20:43] LABS: 25-OH Vitamin D, Total 83.9 ng/mL (30-100)
[2025-03-02 22:31] LABS: Hemoglobin A1C 9.5 % (4.0-6.0)
== END 2025-03-02 23:59 | disposition home or self-care (01) ==
LOC: LAB.DROPOF 03-04 13:01
PROVIDERS: PCP Nurse Practitioner Family; Visit Provider Nurse Practitioner Family
DX: E11.40 Type 2 diabetes mellitus with diabetic neuropathy, unspecified (principal); Z68.41 Body mass index [BMI] 40.0-44.9, adult; Z79.84 Long term (current) use of oral hypoglycemic drugs; Z79.85 Long-term (current) use of injectable non-insulin antidiabetic drugs; E66.9 Obesity, unspecified; E55.9 Vitamin D deficiency, unspecified
CPT/HCPCS: 80053; 80061; 82306; 83036; 84443; 85025

== ENCOUNTER 2025-08-31 14:31 | Outpatient (CLI) | payer MEDICARE, SELFPAY ==
[2025-08-31 21:14] LABS: Hematocrit 47.5 % (42.0-52.0); Hemoglobin 16.3 g/dL (14.1-18.0); Immature Granulocytes % 0.3 %; Mean Corpuscular HGB Conc 34.3 g/dL (31.8-35.4); Mean Corpuscular Hemoglobin 30.6 pg (27.0-31.2); Mean Corpuscular Volume 89.1 fl (80-94); Nucleated Red Blood Cells % 0 %; Platelet Count 256 K/mm3 (142-424); Red Blood Count 5.33 M/mm3 (4.60-6.20); Red Cell Distribution Width-SD 44.4 fL; White Blood Count 11.1 K/mm3 (4.8-10.8)
[2025-08-31 22:12] LABS: Alanine Aminotransferase 27 U/L (12-78); Albumin Level 4.1 g/dl (3.5-5.0); Albumin/Globulin Ratio 1.4 (1.1-1.8); Alkaline Phosphatase 140 U/L (38-126); Anion Gap 11.8 mEq/L (5-15); Aspartate Amino Transferase 23 U/L (17-59); Bilirubin,Total 0.9 mg/dl (0.2-1.3); Blood Urea Nitrogen 12 mg/dl (9-20); Calcium 9.5 mg/dl (8.4-10.2); Carbon Dioxide 26 mmol/L (22.0-30.0); Chloride 99 mmol/L (98-107); Cholesterol 174 mg/dl (140-200); Creatinine,Serum 0.60 mg/dl (0.66-1.25); Estimated Glomerular Filt Rate 135 ml/min (>60); GFR (African American) 164 ML/MIN (>60); Globulin 3.0 g/dL (1.3-3.2); Glucose 341 mg/dl (74-100); HDL Cholesterol 48 mg/dl (40-60); Potassium 4.8 mmoL/L (3.5-5.1); Sodium 132 mmol/L (136-145); Total Protein,Serum 7.1 g/dl (6.3-8.2); Triglycerides 207 mg/dl (30-150)
[2025-08-31 23:14] LABS: Hemoglobin A1C 11.2 % (4.0-6.0)
--- OUTSIDE RECORDS SUMMARY | 2025-09-01 10:59 | XMS_ITS | Clinical Summary ---
[facility] Organization [facility] Address [address] [place] [address] Care Team Providers Care Continuous Improvement Engineer Name Role Phone Provider, No Known Primary Care Provider Unavail able Allergies Active Allergy Reactions Criticality Noted Date Comments Diclofenac 10/30/2016 Medications lisinopril-hydroch lorothiazide (PRINZIDE,ZESTORET IC) 20-25 MG per tablet 08/15/2016 Active lovastatin (MEVACOR) 20 MG tablet 10/06/2016 Active metFORMIN (GLUCOPHAGE) 1000 MG tablet 09/29/2016 Active pioglitazone (ACTOS) 45 MG tablet 10/08/2016 Active glyBURIDE (DIAbeta) 5 MG tablet 10/08/2016 Active Active Problems Problem Noted Date Diagnosed Date Memory loss 11/03/2016 Chronic fatigue 11/03/2016 Family History Medical History Relation Name Comments Alzheimer's disease Maternal Aunt Dementia Maternal Aunt Relation Name Status Comments Maternal Aunt Social History Tobacco Use Types Packs/Day Years Used Date Smoking Tobacco: Never Alcohol Use Standard Drinks/Week Comments Yes 0 (1 standard drink = 0.6 oz pur e alcohol) SOCIALLY Abuse Screen Answer Date Recorded Unsafe at Home or Work/School Not on file Feels Threatened by Someone? Not on file 06/2023 Does Anyone Keep You from Co ntacting Others or Doint Things Outside the Home? Not on file 07/28/2023 Physical Sign of Abuse Present Not on file 1 Housing Stability Answer Date Recorded Current Living Arrangements Not on file 06/2023 Potentially Unsafe Housing Conditions Not on zack e 07/28/2023 Family and Community Support Answer Ward e Recorded Help with Day-to-Day Activities Not on file 07/28/2023 Lonely or Isolated Not on file 07/28/2023 Employment Answer Date Recorded Do you want help finding or keeping work or a lambert b? Not on file 07/28/2023 Disabilities Answer Date Recorded Concentrating, Remembering, or Making Decisions Difficulty Not on file 07/28/2023 Doing Errands Independently Difficulty Not on fi le 07/28/2023 Education Answer Date Recorded Help with school or training? Not on file Preferred Language Not on file 07/28/2023 Sex and Gender Information Value Date Recorded Sex Assigned at Not on file Legal Sex Male 12:15 PM EDT Gender Identity Not on file Sexual Orientation Not on file Last Filed Vital Signs Vital Sign Reading Time Taken Comments Blood Pressure 138/80 10/30/2016 1:42 PM EST Pulse 86 10/30/2016 1:42 PM EST Temperature - - Respiratory Rate - - Oxygen Saturation 95% 10/30/2016 1:42 PM EST Inhaled Oxygen Concentration - - Weight 138 kg (305 lb) 10/30/2016 1:42 PM EST Height 175.3 cm (5' 9 ) 10/30/2016 1:42 PM EST Body Mass Index 45.04 10/30/2016 1:42 PM EST Plan of Treatment Health Maintenance Due Date Last Done Comments TDAP/TD VACCINES (1 - Tdap) 1979 COLOGUARD 2005 COLON CANCER SCREENING 5 YEAR SIGMOIDOSCOPY 2005 COLONOSCOPY [address] S[address]EN[address] COLONOGRAPHY 2005 FECAL OCCULT BLOOD TEST 2005 FIT Testing (1 year) 2005 Pneumococcal Vaccine 50+ (1 of 1 - PCV) 2010 ZOSTER VACCINE (1 of 2) 2010 ANNUAL PHYSICAL 03/07/2017 HEPATITIS C SCREENING 03/07/2017 AAA SCREEN ONCE 2025 INFLUENZA VACCINE 05/20/2025 COVID-19 Vaccine ( season) 2025 Insurance [employer] [address] Care Teams Continuous Improvement Engineer Relationship Specialty Start Date End Date Provider, [place] [address] PCP - General 10/30/16
--- OUTSIDE RECORDS SUMMARY | 2025-09-01 10:59 | XMS_ITS | Clinical Summary ---
Author Organization [employer] ([place], [place], [place], [place], [place]) Address [address] [place] [address] Care Team Providers Care Gas Cutting Machine Operator Name Role Phone Sj, Provider Not In The System MD Primary Care Provider Unavailable Allergies No known active allergies Social History Tobacco Use Types Packs/Day Years Used Date Smoking Tobacco: Never Assessed Food Insecurity Answer Date Recorded Food run out past 12 months Not on file 10/20 Food did not last past 12 months Not on file 10/31/2023 Employment Answer Date Recorded Help finding and keeping a job Not on file 0 10/31/2023 Family and Community Support Answer Ward e Recorded Help with Day to Day Activities Not on file 10/31/2023 Feeling Lonely or Isolated Not on file 10/31 Educational Attainment Answer Date Asa rded Speak language other than Bermudian at home Not on file 10/31/2023 Want help with school or training Not on file 10/31/2023 Substance Use Answer Date Recorded Used prescription meds for non-medical reasons N ot on file 10/31/2023 Used illegal drugs past 12 months Not on file 10/31/2023 Sex and Gender Information Value Date Recorded Sex Assigned at Not on file Legal Sex Male 7:43 PM CDT Gender Identity Not on file Sexual Orientation Not on file Plan of Treatment Health Maintenance Due Date Last Done Comments CT Colonography 1960 Colonoscopy 1960 Colorectal Cancer Screening 1960 FOBT/FIT 1960 Fit-DNA (Cologuard) 1960 Sigmoidoscopy 1960 Depression Screening (12+) 1972 Tobacco Cessation Counseling and Screening (12+) 1972 HIV Screening 1975 Hepatitis C Screening 1978 DTAP/TDAP/TD VACCINES (1 - Tdap) 1979 Lipid Panel 1995 Pneumococcal 50+ years (1 of 1 - PCV) 2010 Shingles Vaccine (Zoster) (1 of 2) 2010 Falls Risk Screening 10/20/2024 COVID-19 VACCINE (4 - 2024- season) 2025 10/30/2021, 02/15/2021, 01/18/2021 Influenza Vaccine (#1) 2025 Respiratory Syncytial Virus (RSV) Adult or (1 - 1-dose 75+ series) 2035 Insurance [facility] MEDICAID Care Teams Gas Cutting Machine Operator Relationship Specialty Start Date End Date [facility], Provider Not In The System, [place] [address] PCP - General 09/24/23
--- OUTSIDE RECORDS SUMMARY | 2025-09-01 10:59 | XMS_ITS | Encounter Summary ---
Author Organization [facility] Address [address] [place] [address] Care Team Providers Care Cook Helper Vegetable Name Role Phone Per Patient, None Primary Care Provider [phone] Gee Rucker APRN Primary Care Provider [phone] Mare Dawson APRN Unavailable [phone] Encounter Details Date Type Department Care Team (Late st Contact Info) Description 08/01/2022 [facility] [address] [place] [phone] Mike Prasad MD [address] [place] [address] Acute cystitis with hematuria (Primary Dx) Social History Tobacco Use Types Packs/Day Years Used Date Smoking Tobacco: Some Days Smokeless Tobacco: Never Alcohol Use Standard Drinks/Week Comments Yes 0 (1 standard drink = 0.6 oz pur e alcohol) Sex and Gender Information Value Date Recorded Sex Assigned at Not on file Legal Sex Male 8:35 PM EDT Gender Identity Not on file Sexual Orientation Not on file documented as of this encounter Plan of Treatment Upcoming Encounters Date Type Department Care Team (Late st Contact Info) Description 10/21/2025 2:00 PM EST Clinical Support Medical Office Building Lab [address] [place] [address] 04/19/2026 2:00 PM EDT Office Visit Medical Office Building Urology [address] [facility], [address] [place] [address] Rei Hanks MD [address] [place] [address] documented as of this encounter Visit Diagnoses Diagnosis Acute cystitis with hematuria- Primary documented in this encounter Additional Health Concerns Assessment Noted Time A fall risk assessment has been complete d for the patient 06/06/2021 12:26 PM EDT documented as of this encounter Care Teams Cook Helper Vegetable Relationship Specialty Start Date End Date Per Patient, None, [address] [facility] [address] [place] [address] PCP - General 04/11/20 09/13/24 Gee Rucker APRN [address] [place] [id number] PCP - General 09/14/24 Mare Dawson APRN [address] [place] [address] Nurse Practitioner Urology 02/17/25 documented as of this encounter
--- OUTSIDE RECORDS SUMMARY | 2025-09-01 10:59 | XMS_ITS | Referral Summary ---
Author Organization [employer] ([place], [place], [place], [place], [place]) Address [address] [place] [address] Care Team Providers Care Potato Chip Packaging Machine Operator Name Role Phone [facility], Provider Not In The System MD Primary [...] Date Asa rded Speak language other than Kittitian at home Not on file 10/31/2023 Want [...] Orientation Not on file Plan of Treatment Not on file Insurance 2017 [facility] [address] [id number] [employer] MED[employer] Care Teams Potato Chip Packaging Machine Operator Relationship Specialty Start Date End Date [facility], Provider Not In The System, [place] [address] PCP - General 09/24/23
--- OUTSIDE RECORDS SUMMARY | 2025-09-01 10:59 | XMS_ITS | Encounter Summary ---
Author Organization [facility] Address [address] [place] [address] Care Team Providers Care Health Advocate Name Role Phone Per Patient, None Primary Care Provider [phone] Gee Rucker CAFETERIA MONITOR Primary Care Provider [phone] Mare Dawson CAFETERIA MONITOR Unavailable [phone] Encounter Details Date Type Department Care Team (Late Contact Info) Description 09/24/2023 Orders Only External Location [address] [place] [address] Madhuri Roman, CAFETERIA MONITOR [address] [facility] [address] [id number] Social History Tobacco Use Types Packs/Day Years [...] Encounters Date Type Department Care Team (Late Contact Info) Description 10/21/2025 2:00 PM EST Clinical Support Medical Office Building Lab [address] [place] [address] 04/19/2026 2:00 PM EDT Office Visit Medical Office Building Urology [address] [facility], [address] [place] [address] Rei Hnaks MD [address] [place] [address] documented as of this encounter Procedures Procedure Name Priority Date/Time Associated Diagnosis Comments MR OUTSIDE IMAGES 09/24/2023 7:59 AM EST documented in this encounter Results * MR transfer of outside films (09/24/2023 7:59 AM EST) Anatomical Region Laterality Modality Magnetic Resonan ce 09/24/2023 7:59 AM EST us Madhuri Roman CAFETERIA MONITOR IMG MRI PROCEDURES Final R esult documented in this encounter Visit Diagnoses Not on filedocumented in this encounter Additional Health Concerns Assessment Noted Time A fall risk assessment has been complete d for the patient 06/06/2021 12:26 PM EDT documented as of this encounter Care Teams Health Advocate Relationship Specialty Start Date End Date Per Patient, None, [address] [facility] [address] [place] [address] PCP - General 04/11/20 09/13/24 Gee Rucker APRN [address] [place] [address] PCP - General 09/14/24 Mare Dawson APRN [address] [place] [address] Nurse Practitioner Urology 02/17/25 documented as of this encounter
--- OUTSIDE RECORDS SUMMARY | 2025-09-01 10:59 | XMS_ITS | Clinical Summary ---
Author Organization [facility] Address [address] [place] [address] Care Team Providers Care Production Sorter Name Role Phone Alka Gee Alvarado WRAPPER LAYER AND EXAMINER SOFT WORK Primary Care Provider [phone] Mare Dawson WRAPPER LAYER AND EXAMINER SOFT WORK Unavailable [phone] Allergies Active Allergy Reactions Criticality Noted Date Comments Diclofenac Unknown - Patient st ates they do not know rxn details Low 05/19/2015 Medications bisoprolol (Zebeta) 5 MG tablet Take 1 tablet (5 mg) by mouth 1 (one) time each day. Active lovastatin (Mevacor) 20 MG tablet Take 1 tablet (20 mg) by mouth every night. Active metFORMIN XR (Glucophage-XR) 500 MG 24 hr tablet Take 2 tablets (1,000 mg) by mouth 2 (two) times a day. Do not crush, chew, or split. Active lisinopril 20 MG tablet Take 5 mg by mouth 1 (one) time each day. Active glipiZIDE XL 10 MG 24 hr tablet Take 1 tablet (10 mg) by mouth 1 (one) time each day. Do not crush, chew, or split. Active ASPIRIN 81 MG chewable tablet Chew 1 tablet (81 mg) 1 (one) time each day. Active atorvastatin (Lipitor) 20 MG tablet Take 1 tablet (20 mg) by mouth 1 (one) time each day. Active hydroCHLOROthia zide (HYDRODiuril) 25 MG tablet Take 1 tablet (25 mg) by mouth 1 (one) time each day. Active cholecalciferol (Vitamin D3) 25 MCG (1000 UT) tablet Take 1 tablet (1,000 Units) by mouth 1 (one) time each day. Active finasteride (Proscar) 5 MG tablet Take 1 tablet by mouth daily. Do not crush, chew, or split. 90 tablet 3 04/20/2025 Active Active Problems Problem Noted Date Diagnosed Date Hyperlipidemia 02/17/2025 Vitamin D deficiency 02/17/2025 Snoring 02/17/2025 Sciatica of left side 02/17/2025 Sleep apnea 02/17/2025 TRACEY on CPAP 02/17/2025 Noncompliance 02/17/2025 Left low back pain 02/17/2025 Dyspnea 02/17/2025 Dental abscess 02/17/2025 Daytime somnolence 02/17/2025 Chest pain 02/17/2025 Benign localized prostatic h yperplasia with lower urinary tract symptoms (LUTS) 02/17/2025 Class III obesity with body mass index (BMI) of 40.0 or higher 02/17/2025 Elevated prostate specific antigen (PSA) 024 Weakness 08/10/2024 Type 2 diabetes mellitus wit h diabetic neuropathy, unspecified 08/10/2024 Tinea unguium 08/10/2024 Pain in right foot 08/10/2024 Pain in left foot 08/10/2024 Other hammer toe(s) (acquired), right foot 08/10 Urge incontinence 07/08/2024 Frequency of micturition 07/08/2024 Trochanteric bursitis, right hip 06/24/2024 Poor urinary stream 05/04/2024 Nocturia 05/04/2024 Other specified local infect ions of the skin and subcutaneous tissue 04/26/2024 Other skin changes due to ch ronic exposure to nonionizing radiation 04/26/2024 Other skin changes 04/26/2024 Other disturbances of skin sensation 04/26/2024 Anogenital (venereal) warts 04/26/2024 Pain in right hip 04/09/2024 ABLA (acute blood loss anemia) 04/15/2021 Overview (04/15/2021): H&H stable Concussion 04/13/2021 Overview (04/15/2021): Concussion precautions F/u with SGT Friday clinic in one month for sypmtoms Closed compression fracture of third lumbar vert ebra 04/11/2021 Overview (04/15/2021): NSGY consulted The patient must don/doff the TLSO lying supine with help from staff. Upright filmsARE NOT required after the patient has been fitted with their brace. C collar for comfort Hyperglycemia 04/11/2021 Overview (04/15/2021): Likely related or made worse by trauma Monitor and treat as needed Closed fracture of multiple ribs of left side wi th nonunion 04/11/2021 Overview (04/15/2021): Pulmonary hygiene, incentive spirometry, nebs, and ambulation Fracture of cervical spinous process, initial en counter 04/11/2021 Overview (04/15/2021): NSGY consulted No acute neurosurgical intervention warranted The patient must don/doff the TLSO lying supine with help from staff Upright films are not required after the patient has been fitted with their brace C collar for comfort Contusion of left lung 04/11/2021 Overview (04/15/2021): Pulmonary hygiene, incentive spirometry, nebs, and ambulation Pneumothorax on left 04/11/2021 Overview (04/15/2021): Resolved Adrenal hemorrhage 04/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 Overview (04/15/2021): H&H stable Obesity 04/11/2021 Overview (04/15/2021): Complicates care / mobility Chronic fatigue 11/03/2016 Memory loss 11/03/2016 HBP (high blood pressure) 05/19/2015 High cholesterol 05/19/2015 Diabetes 05/19/2015 Resolved Problems Problem Noted Date Diagnosed Date Resolved Date Lactic acidosis 04/11/2021 04/13/2021 Overview (04/12/2021): - Likely due to trauma - resolved Family History Medical History Relation Name Comments Hypertension Father Lymphoma Father Relation Name Status Comments Father Mother Social History Tobacco Use Types Packs/Day Years Used Date Smoking Tobacco: Never Smokeless Tobacco: Never Tobacco Cessation:Counseling Given: Not Answered Alcohol Use Standard Drinks/Week Comments Yes 0 (1 standard drink = 0.6 oz pur e alcohol) PHQ-2 Answer Date Recorded Patient Health Questionnaire-2 Score 0 04/20/2025 PHQ-9 Answer Date Recorded Patient Health Questionnaire-9 Score 0 04/20/2025 AUDIT-C Answer Date Recorded Q1: How often do you have a drink containing alcohol? Never 04/20/2025 Q2: How many drinks containi ng alcohol do you have on a typical day when you are drinking? Patient does not drink Q3: How often do you have si x or more drinks on one occasion? Never 04/20/2025 Sex and Gender Information Value Date Recorded Sex Assigned at Not on file Legal Sex Male 8:35 PM EDT Gender Identity Not on file Sexual Orientation Not on file Last Filed Vital Signs Vital Sign Reading Time Taken Comments Blood Pressure 133/89 04/20/2025 2:54 PM EDT Pulse 70 04/20/2025 2:54 PM EDT Temperature 36.7 C (98.1 F) 04/20/2025 2:54 PM EDT Respiratory Rate 16 07/08/2024 7:59 AM EDT Oxygen Saturation 100% 04/20/2025 2:54 PM EDT Inhaled Oxygen Concentration - - Weight 130 kg (286 lb 9.6 oz) 04/20/2025 2:54 PM EDT Height 175.3 cm (5' 9 ) 04/20/2025 2:54 PM EDT Body Mass Index 42.32 04/20/2025 2:54 PM EDT Plan of Treatment Upcoming Encounters Date Type Department Care Team (Late st Contact Info) Description 10/21/2025 2:00 PM EST Clinical Support Medical Office Building Lab [address] [place] [address] 04/19/2026 2:00 PM EDT Office Visit Medical Office Building Urology [address] [facility], [address] [place] [address] Rei Hanks MD [address] [place] [id number] Health Maintenance Due Date Last Done Comments [facility]-Diabetes: Hemoglobin A1C 1960 [facility]-Medicare Annual Wellness (AWV) 1960 [facility]-Infant/Child/Adol SDOH Screenings 1960 Diabetes: Dental Exam 1970 [facility]- SDOH Screenings 1978 [facility]-Adult SDOH Screenings 1978 [facility]-DTaP,Tdap,and Td Vaccines (1 - Tdap) 1979 [facility]-Pneumococcal Vaccine: 50+ Years (1 of 2 - PCV) 1979 CT Colonography 2005 Colonoscopy 2005 FIT-DNA 2005 FIT 2005 FOBT 2005 Sigmoidoscopy 2005 [facility]-Colorectal Cancer Screening 2005 [facility]-RSV Vaccine: 60+ Years or (1 - Risk 60-74 years 1-dose series) 2020 [id number] Vaccine ( - season) 2025 10/30/2021, 02/15/2021, 01/18/2021 [facility]-Influenza Vaccine (#1) 2025 [facility]-Depression Screening 04/20/2026 04/20/2025, 070 11/2024 [facility]-Hepatitis C Screening Completed 04/11/2021 [facility]-Zoster Vaccines Completed 04/21/2024, [facility]-Obesity Intervention Completed 025, 03/09/2025, 11/01/2024, Additional history exists HPV Vaccines Aged Out No longer eligi ble based on patient's age to complete this topic [facility]-HIB Vaccines Aged Out No longer e ligible based on patient's age to complete this topic [facility]-Hepatitis A Vaccines Aged Out No longer eligible based on patient's age to complete this topic [facility]-IPV Vaccines Aged Out No longer e ligible based on patient's age to complete this topic [facility]-Rotavirus Vaccines Aged Out No lo nger eligible based on patient's age to complete this topic Procedures Procedure Name Priority Date/Time Associated Diagnosis Comments HEPATITIS C ANTIBODY - ED W/REFLEX TO HCV QUANT PCR STAT 04/11/2021 2:31 AM EDT from Last 3 Months or Most Recently Relevant to Health Maintenance Results * [facility] Hepatitis C Antibody (04/11/2021 2:31 AM EDT) Hepatitis C Antibody Negative Negative 04/11/2021 4:10 AM EDT [facility] Blood Venous blood specimen / Unknown Venipuncture / Unknown 04/11/2021 2:31 AM EDT 04/11/2021 2:41 AM EDT Adrian Porter MD LAB BLOOD ORDERABLES Final Result [facility] [address] [place] [address] from Last 3 Months or Most Recently Relevant to Health Maintenance Insurance [address] MEDICARE Advance Directives * Full Code (Latest Code Status on File) Date Activated Date Inactivated Comments 04/11/2021 5:05 AM 04/21/2021 1:44 PM Question Answer Comments Patient has decision-making capacity? Yes Care Teams Production Sorter Relationship Specialty Start Date End Date Gee Rucker APRN [address] [place] [address] PCP - General 09/14/24 Mare Dawson APRN [address] [place] [address] Nurse Practitioner Urology 02/17/25
== END 2025-08-31 23:59 ==
LOC: LAB.DROPOF 09-01 10:31
PROVIDERS: PCP Family Medicine; Visit Provider Nurse Practitioner Family
DX: E66.01 Morbid (severe) obesity due to excess calories (principal); I10 Essential (primary) hypertension; E11.65 Type 2 diabetes mellitus with hyperglycemia; E78.2 Mixed hyperlipidemia
CPT/HCPCS: 80053; 80061; 83036; 85025